=== PATIENT | male | born 1985 | race Two or more races ===

== ENCOUNTER 2018-09-01 11:35 | Emergency (ER) | payer MEDICAID ==
[~2018-09-01] VITALS: Ht 170.2 cm; Wt 80.0 kg
[2018-09-01] MEDS ORDERED: CLOZ25TA4 PO (11:41)
[2018-09-01] MEDS ORDERED: ATEN-42 PO (11:42)
[2018-09-01] MEDS ORDERED: LEVO25TA7 PO (11:42)
[2018-09-01] MEDS ORDERED: LORA1TAB PO (11:42)
[2018-09-01] MEDS ORDERED: ACETAMINOPHEN 325MG TABLET PO STA (12:14)
[2018-09-01] MEDS ORDERED: ONDANSETRON 4MG ODT PO STA (12:14)
[2018-09-01 13:05] LABS: BASOPHILS % 0.5 % (0.0-2.0); HEMATOCRIT. 42.4 % (42.0-52.0); HEMOGLOBIN. 14.3 g/dL (14.0-18.0); LYMPHOCYTES % 19.9 % (20.0-50.0); MEAN CORPUSCULAR HEMOGLOBIN 32.4 pg (28.0-32.0); MEAN CORPUSCULAR VOLUME 95.6 fL (80.0-94.0); MEAN PLATELET VOLUME 6.7 fl (7.4-10.4); MONOCYTES % 6.5 % (2.0-8.0); NEUTROPHILS % 73.1 % (40.0-76.0); PLATELET 197 x1000/uL (130-400); RED BLOOD CELL COUNT 4.43 mill/uL (4.7-6.1); RED CELL DISTRIBUTION WIDTH 13.5 % (11.6-14.6)
[2018-09-01 13:07] LABS: CHLORIDE 108 mEq/L (98-107)
[2018-09-01 13:39] VITALS: BP 131/70
== END 2018-09-01 13:39 | disposition home or self-care (01) ==
LOC: ER 11:35
DX: B34.9 Viral infection, unspecified (principal); I10 Essential (primary) hypertension; E05.90 Thyrotoxicosis, unspecified without thyrotoxic crisis or storm; R05 Cough; R11.0 Nausea; Z79.899 Other long term (current) drug therapy
CPT/HCPCS: 36415; 71045; 80053; 85025; 99284; Q0162

== ENCOUNTER 2019-08-06 13:15 | Emergency (ER) | payer MEDICAID ==
[~2019-08-06] VITALS: Ht 170.2 cm; Wt 86.0 kg
[~2019-08-06 13:15] MED LIST: ATEN-42 PO; CLOZ25TA4 PO; LEVO25TA7 PO; LORA1TAB PO
[2019-08-06] MEDS ORDERED: SODIUM CHLORIDE 0.9% 1,000 ML IV ONE (13:25)
[2019-08-06] MEDS ORDERED: DIPHENHYDRAMINE 50MG/ML VIAL IV ONE ×2 (13:30→14:30)
[2019-08-06 14:06] LABS: BASOPHILS % 0.3 % (0.0-2.0); HEMATOCRIT. 42.4 % (42.0-52.0); HEMOGLOBIN. 14.4 g/dL (14.0-18.0); LYMPHOCYTES % 20.8 % (20.0-50.0); MEAN CORPUSCULAR HEMOGLOBIN 31.9 pg (28.0-32.0); MEAN CORPUSCULAR VOLUME 93.8 fL (80.0-94.0); MEAN PLATELET VOLUME 6.7 fl (7.4-10.4); NEUTROPHILS % 73.9 % (40.0-76.0); PLATELET 193 x1000/uL (130-400); RED BLOOD CELL COUNT 4.51 mill/uL (4.7-6.1); RED CELL DISTRIBUTION WIDTH 13.7 % (11.6-14.6)
[2019-08-06 14:14] LABS: CHLORIDE 105 mEq/L (98-107)
[2019-08-06 14:20] LABS: ETHANOL BLOOD 52 mg/dL
[2019-08-06 14:34] LABS: CLARITY URINE CLEAR (CLEAR); COLOR URINE YELLOW (YELLOW); KETONES URINE NEGATIVE (NEGATIVE); LEUKOCYTE ESTERASE URINE NEGATIVE (NEGATIVE); NITRITE URINE NEGATIVE (NEGATIVE); OCCULT BLOOD URINE NEGATIVE (NEGATIVE); PH URINE 7.5 (4.5-8.0); PROTEIN URINE NEGATIVE (NEGATIVE); SPECIFIC GRAVITY URINE 1.005 (1.005-1.030); UROBILINOGEN URINE 0.2 E.U./dL (0.2-1.0)
[2019-08-06] MEDS ORDERED: LORAZEPAM 2MG/ML CPJ IV ONE (15:00)
[2019-08-06 15:08] LABS: *AMPHETAMINES SCREEN URINE NEGATIVE (NEGATIVE)
[2019-08-06 15:09] LABS: *BARBITURATES SCREEN URINE NEGATIVE (NEGATIVE); *BENZODIAZEPINES SCREEN URINE NEGATIVE (NEGATIVE); *COCAINE SCREEN URINE NEGATIVE (NEGATIVE); METHADONE URINE SCREEN NEGATIVE (NEGATIVE); OPIATES URINE SCREEN NEGATIVE (NEGATIVE); PHENCYCLIDINE URINE SCREEN NEGATIVE (NEGATIVE)
[2019-08-06 15:10] LABS: CANNABINOID URINE SCREEN NEGATIVE (NEGATIVE)
[2019-08-06 18:31] VITALS: BP 128/66
== END 2019-08-06 18:33 | disposition home or self-care (01) ==
LOC: ER 13:35
DX: G93.40 Encephalopathy, unspecified (principal); F10.129 Alcohol abuse with intoxication, unspecified; I10 Essential (primary) hypertension; Z79.899 Other long term (current) drug therapy; Z98.890 Other specified postprocedural states; Y90.2 Blood alcohol level of 40-59 mg/100 ml
CPT/HCPCS: 36415; 70450; 71045; 80053; 80305; 80307; 80320; 80329; 81003; 83690; 84484; 85025; 93005; 96374; 96375; 96376; 99285; J1200; J2060; J7030; G0480

== ENCOUNTER 2019-09-28 15:40 | Inpatient (IN) | payer MEDICAID ==
[~2019-09-28] VITALS: Ht 157.5 cm; Wt 78.5 kg
[2019-09-28] MEDS ORDERED: FOLIC ACID 1 MG, THIAMINE HCL 100 MG, MVI, ADULT NO.1 10 ML in DEXTROSE 5% WATER 1,000 ML IV ONE ×4 (16:00)
[2019-09-28] MEDS ORDERED: ONDANSETRON HCL 4MG/2ML INJ IV ONE (16:00)
[2019-09-28] MEDS ORDERED: SODIUM CHLORIDE 0.9% 1,000 ML IV ONE (16:04)
[2019-09-28 16:31] LABS: BASOPHILS % 0.2 % (0.0-2.0); HEMATOCRIT. 39.3 % (42.0-52.0); HEMOGLOBIN. 13.7 g/dL (14.0-18.0); LYMPHOCYTES % 37.9 % (20.0-50.0); MEAN CORPUSCULAR HEMOGLOBIN 32.9 pg (28.0-32.0); MEAN CORPUSCULAR VOLUME 94.1 fL (80.0-94.0); MEAN PLATELET VOLUME 6.7 fl (7.4-10.4); MONOCYTES % 7.8 % (2.0-8.0); NEUTROPHILS % 54.1 % (40.0-76.0); PLATELET 207 x1000/uL (130-400); RED BLOOD CELL COUNT 4.18 mill/uL (4.7-6.1); RED CELL DISTRIBUTION WIDTH 13.6 % (11.6-14.6)
[2019-09-28 16:41] LABS: CHLORIDE 105 mEq/L (98-107)
[2019-09-28 16:42] LABS: PROTHROMBIN TIME 10.7 sec (9.6-11.0)
[2019-09-28 16:46] LABS: ETHANOL BLOOD 205 mg/dL
[2019-09-28 16:51] LABS: CREATINE KINASE 123 IU/L (39-308)
[2019-09-28 16:55] LABS: CLARITY URINE CLEAR (CLEAR); COLOR URINE YELLOW (YELLOW); KETONES URINE NEGATIVE (NEGATIVE); LEUKOCYTE ESTERASE URINE NEGATIVE (NEGATIVE); NITRITE URINE NEGATIVE (NEGATIVE); OCCULT BLOOD URINE NEGATIVE (NEGATIVE); PROTEIN URINE NEGATIVE (NEGATIVE); SPECIFIC GRAVITY URINE 1.012 (1.005-1.030); UROBILINOGEN URINE 0.2 E.U./dL (0.2-1.0)
[2019-09-28 17:10] LABS: CANNABINOID URINE SCREEN NEGATIVE (NEGATIVE); PHENCYCLIDINE URINE SCREEN NEGATIVE (NEGATIVE)
[2019-09-28 17:11] LABS: *BARBITURATES SCREEN URINE NEGATIVE (NEGATIVE); *BENZODIAZEPINES SCREEN URINE NEGATIVE (NEGATIVE); *COCAINE SCREEN URINE NEGATIVE (NEGATIVE); METHADONE URINE SCREEN NEGATIVE (NEGATIVE); OPIATES URINE SCREEN NEGATIVE (NEGATIVE)
[2019-09-28 17:18] LABS: *AMPHETAMINES SCREEN URINE NEGATIVE (NEGATIVE)
[2019-09-28] MEDS ORDERED: LEVETIRACETAM 500MG PREMIX 100 ML IV ONE (18:00)
[2019-09-28] MEDS ORDERED: GUAIFENESIN 200MG/10ML SUGAR FREE UDC PO PRN (20:15)
[2019-09-28] MEDS ORDERED: ONDANSETRON HCL 4MG/2ML INJ IV PRN (20:15)
[2019-09-28] MEDS ORDERED: HYDROCODONE/ACETAMINOPHEN 10/325MG TABLET PO PRN (20:15)
[2019-09-28] MEDS ORDERED: HYDRALAZINE 20MG/ML VIAL IV PRN (20:15)
[2019-09-28] MEDS ORDERED: DIPHENHYDRAMINE 50MG/ML VIAL IV PRN (20:15)
[2019-09-28] MEDS ORDERED: MAGNESIUM/ALUMINUM HYDROXIDE/SIMETHICONE 30ML UDC PO PRN (20:15)
[2019-09-28] MEDS ORDERED: ACETAMINOPHEN 325MG TABLET PO PRN (20:15)
[2019-09-28] MEDS ORDERED: MORPHINE SULFATE 2 MG/ML CPJ (NOT FOR IM USE) IV PRN (20:15)
[2019-09-28] MEDS ORDERED: CLONIDINE 0.1MG TABLET PO PRN (20:15)
[2019-09-28] MEDS ORDERED: DOCUSATE SODIUM 100MG CAPSULE PO PRN (20:15)
[2019-09-28] MEDS ORDERED: IPRATROPIUM/ALBUTEROL 0.5-3(2.5)MG/3ML NEB HHN PRN (20:15)
[2019-09-28 21:20] VITALS: BP 119/56
[2019-09-28] MEDS: ENOXAPARIN 40MG/0.4ML SYR SUBCUT SCH (22:13)
[2019-09-28] MEDS: SODIUM CHLORIDE 0.9% INJ 3ML FLUSH IVF SCH (22:13)
[2019-09-28] MEDS: LORAZEPAM 2MG/ML CPJ IV PRN (22:14)
[2019-09-28] MEDS: DEXT 5%/0.45% NACL 1000ML 1,000 ML IV SCH (22:14)
[2019-09-28 23:31] LABS: CREATINE KINASE 124 IU/L (39-308)
[2019-09-28 23:32] LABS: CREATINE KINASE MB FRACTION 1.4 ng/mL (0.5-3.6)
[2019-09-29] VITALS: BP 105/67
[2019-09-29 04:00] VITALS: BP 110/64
[2019-09-29] MEDS: DEXT 5%/0.45% NACL 1000ML 1,000 ML IV SCH ×2 (05:52→16:43)
[2019-09-29] MEDS: SODIUM CHLORIDE 0.9% INJ 3ML FLUSH IVF SCH ×3 (05:52→20:29)
[2019-09-29 08:00] VITALS: BP 103/50
[2019-09-29] MEDS ORDERED: LEVETIRACETAM 500MG PREMIX 100 ML IV SCH (09:00)
[2019-09-29] MEDS: LORAZEPAM 2MG/ML CPJ IV PRN ×3 (09:49→23:45)
[2019-09-29] MEDS: LEVETIRACETAM 500MG PREMIX 100 ML IV SCH ×2 (11:17→20:25)
[2019-09-29 12:00] VITALS: BP 116/64
[2019-09-29 15:04] LABS: BASOPHILS % 0.3 % (0.0-2.0); HEMATOCRIT. 38.6 % (42.0-52.0); HEMOGLOBIN. 13.3 g/dL (14.0-18.0); LYMPHOCYTES % 39.2 % (20.0-50.0); MEAN CORPUSCULAR HEMOGLOBIN 32.7 pg (28.0-32.0); MEAN CORPUSCULAR VOLUME 94.8 fL (80.0-94.0); MEAN PLATELET VOLUME 6.7 fl (7.4-10.4); NEUTROPHILS % 52.5 % (40.0-76.0); PLATELET 188 x1000/uL (130-400); RED BLOOD CELL COUNT 4.07 mill/uL (4.7-6.1); RED CELL DISTRIBUTION WIDTH 13.9 % (11.6-14.6)
[2019-09-29 15:14] LABS: CHLORIDE 109 mEq/L (98-107)
[2019-09-29 15:24] LABS: CREATINE KINASE 157 IU/L (39-308)
[2019-09-29 15:26] LABS: CREATINE KINASE MB FRACTION 1.7 ng/mL (0.5-3.6)
[2019-09-29 16:00] VITALS: BP 118/69
[2019-09-29 20:00] VITALS: BP 119/68
[2019-09-29] MEDS: ENOXAPARIN 40MG/0.4ML SYR SUBCUT SCH (20:25)
[2019-09-30] VITALS (7 sets, daily range): BP systolic 103–140; BP diastolic 55–78
[2019-09-30] MEDS: DEXT 5%/0.45% NACL 1000ML 1,000 ML IV SCH ×3 (02:41→22:15)
[2019-09-30] MEDS: SODIUM CHLORIDE 0.9% INJ 3ML FLUSH IVF SCH ×3 (04:39→21:07)
[2019-09-30] MEDS: LEVETIRACETAM 500MG PREMIX 100 ML IV SCH ×2 (08:52→21:07)
[2019-09-30] MEDS: LORAZEPAM 2MG/ML CPJ IV PRN (18:47)
[2019-09-30] MEDS: ENOXAPARIN 40MG/0.4ML SYR SUBCUT SCH (21:06)
[2019-10-01] VITALS: BP 103/54
[2019-10-01 04:00] VITALS: BP 108/61
[2019-10-01] MEDS: SODIUM CHLORIDE 0.9% INJ 3ML FLUSH IVF SCH ×3 (06:00→21:15)
[2019-10-01] MEDS: DEXT 5%/0.45% NACL 1000ML 1,000 ML IV SCH ×2 (07:38→17:53)
[2019-10-01] MEDS: LEVETIRACETAM 500MG PREMIX 100 ML IV SCH ×2 (07:38→21:15)
[2019-10-01 08:00] VITALS: BP 107/65
[2019-10-01 12:00] VITALS: BP 133/64
[2019-10-01] MEDS: FOLIC ACID 1MG TABLET PO SCH (12:23)
[2019-10-01] MEDS: MULTIVITAMINS,THER W-MINERALS TABLET PO SCH (12:23)
[2019-10-01] MEDS: THIAMINE HCL 100MG TABLET PO SCH (12:23)
[2019-10-01] MEDS: CHLORDIAZEPOXIDE 25MG CAPSULE PO SCH ×2 (13:01→21:15)
[2019-10-01 16:00] VITALS: BP 128/76
[2019-10-01 20:00] VITALS: BP 113/74
[2019-10-01] MEDS: ENOXAPARIN 40MG/0.4ML SYR SUBCUT SCH (21:15)
[2019-10-01] MEDS: LORAZEPAM 2MG/ML CPJ IV PRN (21:29)
[2019-10-02] VITALS: BP 96/65
[2019-10-02] MEDS: DEXT 5%/0.45% NACL 1000ML 1,000 ML IV SCH ×2 (03:53→14:18)
[2019-10-02 04:00] VITALS: BP 103/63
[2019-10-02] MEDS: SODIUM CHLORIDE 0.9% INJ 3ML FLUSH IVF SCH ×3 (05:54→21:09)
[2019-10-02] MEDS: CHLORDIAZEPOXIDE 25MG CAPSULE PO SCH ×3 (06:21→21:09)
[2019-10-02 07:12] LABS: CHLORIDE 110 mEq/L (98-107)
[2019-10-02 07:28] LABS: BASOPHILS % 0.4 % (0.0-2.0); HEMOGLOBIN. 13.4 g/dL (14.0-18.0); LYMPHOCYTES % 45.2 % (20.0-50.0); MEAN CORPUSCULAR HEMOGLOBIN 32.8 pg (28.0-32.0); MEAN CORPUSCULAR VOLUME 95.1 fL (80.0-94.0); MONOCYTES % 8.6 % (2.0-8.0); NEUTROPHILS % 45.8 % (40.0-76.0); PLATELET 191 x1000/uL (130-400); RED CELL DISTRIBUTION WIDTH 13.9 % (11.6-14.6)
[2019-10-02 08:00] VITALS: BP 105/63
[2019-10-02] MEDS: MULTIVITAMINS,THER W-MINERALS TABLET PO SCH (08:57)
[2019-10-02] MEDS: LEVETIRACETAM 500MG PREMIX 100 ML IV SCH ×2 (08:57→21:09)
[2019-10-02] MEDS: THIAMINE HCL 100MG TABLET PO SCH (08:57)
[2019-10-02] MEDS: FOLIC ACID 1MG TABLET PO SCH (08:57)
[2019-10-02 12:00] VITALS: BP 112/68
[2019-10-02 16:00] VITALS: BP 105/64
[2019-10-02] MEDS: LORAZEPAM 2MG/ML CPJ IV PRN (19:46)
[2019-10-02 20:00] VITALS: BP 114/73
[2019-10-02] MEDS: ENOXAPARIN 40MG/0.4ML SYR SUBCUT SCH (21:09)
[2019-10-03] VITALS: BP 103/64
[2019-10-03] MEDS: LORAZEPAM 2MG/ML CPJ IV PRN ×3 (00:59→21:02)
[2019-10-03] MEDS: DEXT 5%/0.45% NACL 1000ML 1,000 ML IV SCH ×3 (03:41→22:37)
[2019-10-03 04:00] VITALS: BP 103/68
[2019-10-03] MEDS: CHLORDIAZEPOXIDE 25MG CAPSULE PO SCH ×3 (05:11→21:01)
[2019-10-03] MEDS: SODIUM CHLORIDE 0.9% INJ 3ML FLUSH IVF SCH ×3 (05:12→22:00)
[2019-10-03 06:10] LABS: CHLORIDE 110 mEq/L (98-107)
[2019-10-03 06:18] LABS: BASOPHILS % 0.5 % (0.0-2.0); HEMATOCRIT. 38.4 % (42.0-52.0); HEMOGLOBIN. 13.5 g/dL (14.0-18.0); LYMPHOCYTES % 42.9 % (20.0-50.0); MEAN CORPUSCULAR HEMOGLOBIN 33.2 pg (28.0-32.0); MEAN CORPUSCULAR VOLUME 94.6 fL (80.0-94.0); MEAN PLATELET VOLUME 7.1 fl (7.4-10.4); MONOCYTES % 6.4 % (2.0-8.0); NEUTROPHILS % 50.2 % (40.0-76.0); PLATELET 188 x1000/uL (130-400); RED BLOOD CELL COUNT 4.05 mill/uL (4.7-6.1); RED CELL DISTRIBUTION WIDTH 13.8 % (11.6-14.6)
[2019-10-03] MEDS: THIAMINE HCL 100MG TABLET PO SCH (09:57)
[2019-10-03] MEDS: LEVETIRACETAM 500MG PREMIX 100 ML IV SCH ×2 (09:57→21:01)
[2019-10-03] MEDS: FOLIC ACID 1MG TABLET PO SCH (09:57)
[2019-10-03] MEDS: MULTIVITAMINS,THER W-MINERALS TABLET PO SCH (09:57)
[2019-10-03 12:27] VITALS: BP 103/59
[2019-10-03 16:00] VITALS: BP 110/69
[2019-10-03 20:32] VITALS: BP 106/66
[2019-10-03] MEDS ORDERED: LORAZEPAM 2MG/ML CPJ IV PRN (20:45)
[2019-10-03] MEDS: ENOXAPARIN 40MG/0.4ML SYR SUBCUT SCH (21:01)
[2019-10-04 00:53] VITALS: BP 108/63
[2019-10-04 04:00] VITALS: BP 101/65
[2019-10-04] MEDS: SODIUM CHLORIDE 0.9% INJ 3ML FLUSH IVF SCH ×3 (05:16→21:10)
[2019-10-04] MEDS: CHLORDIAZEPOXIDE 25MG CAPSULE PO SCH ×3 (05:41→21:10)
[2019-10-04 08:00] VITALS: BP 107/67
[2019-10-04] MEDS: FOLIC ACID 1MG TABLET PO SCH (08:42)
[2019-10-04] MEDS: DEXT 5%/0.45% NACL 1000ML 1,000 ML IV SCH ×2 (08:42→16:59)
[2019-10-04] MEDS: LEVETIRACETAM 500MG PREMIX 100 ML IV SCH (08:42)
[2019-10-04] MEDS: THIAMINE HCL 100MG TABLET PO SCH (08:42)
[2019-10-04] MEDS: MULTIVITAMINS,THER W-MINERALS TABLET PO SCH (08:42)
[2019-10-04 12:00] VITALS: BP 103/64
[2019-10-04 20:00] VITALS: BP 111/64
[2019-10-04] MEDS: LEVETIRACETAM 500MG/5ML CUP PO SCH (20:36)
[2019-10-04] MEDS: LORAZEPAM 2MG/ML CPJ IV PRN (20:37)
[2019-10-04] MEDS: ENOXAPARIN 40MG/0.4ML SYR SUBCUT SCH (20:37)
[2019-10-05] VITALS: BP 106/66
[2019-10-05 04:00] VITALS: BP 103/63
[2019-10-05] MEDS: CHLORDIAZEPOXIDE 25MG CAPSULE PO SCH ×3 (05:51→21:23)
[2019-10-05] MEDS: SODIUM CHLORIDE 0.9% INJ 3ML FLUSH IVF SCH ×3 (05:51→21:26)
[2019-10-05 07:23] LABS: BASOPHILS % 0.4 % (0.0-2.0); HEMATOCRIT. 37.6 % (42.0-52.0); HEMOGLOBIN. 13.2 g/dL (14.0-18.0); LYMPHOCYTES % 31.6 % (20.0-50.0); MEAN CORPUSCULAR HEMOGLOBIN 33.2 pg (28.0-32.0); MEAN CORPUSCULAR VOLUME 94.4 fL (80.0-94.0); MEAN PLATELET VOLUME 7.2 fl (7.4-10.4); MONOCYTES % 9.9 % (2.0-8.0); NEUTROPHILS % 58.1 % (40.0-76.0); PLATELET 195 x1000/uL (130-400); RED BLOOD CELL COUNT 3.98 mill/uL (4.7-6.1); RED CELL DISTRIBUTION WIDTH 13.9 % (11.6-14.6)
[2019-10-05 07:59] LABS: CHLORIDE 107 mEq/L (98-107)
[2019-10-05 08:00] VITALS: BP 106/56
[2019-10-05] MEDS: THIAMINE HCL 100MG TABLET PO SCH (08:22)
[2019-10-05] MEDS: DEXT 5%/0.45% NACL 1000ML 1,000 ML IV SCH ×2 (08:22→13:11)
[2019-10-05] MEDS: FOLIC ACID 1MG TABLET PO SCH (08:22)
[2019-10-05] MEDS: MULTIVITAMINS,THER W-MINERALS TABLET PO SCH (08:22)
[2019-10-05] MEDS: LEVETIRACETAM 500MG/5ML CUP PO SCH ×2 (08:22→21:22)
[2019-10-05] MEDS: LORAZEPAM 2MG/ML CPJ IV PRN (15:38)
[2019-10-05 16:00] VITALS: BP 113/73
[2019-10-05 20:00] VITALS: BP 103/64
[2019-10-05] MEDS: ENOXAPARIN 40MG/0.4ML SYR SUBCUT SCH (21:25)
[2019-10-06] VITALS: BP 141/73
[2019-10-06 04:00] VITALS: BP 92/53
[2019-10-06] MEDS: SODIUM CHLORIDE 0.9% INJ 3ML FLUSH IVF SCH ×3 (05:52→21:12)
[2019-10-06] MEDS: CHLORDIAZEPOXIDE 25MG CAPSULE PO SCH ×2 (05:53→14:00)
[2019-10-06 08:00] VITALS: BP 99/63
[2019-10-06] MEDS: THIAMINE HCL 100MG TABLET PO SCH (08:59)
[2019-10-06] MEDS: FOLIC ACID 1MG TABLET PO SCH (08:59)
[2019-10-06] MEDS: LEVETIRACETAM 500MG/5ML CUP PO SCH ×2 (08:59→21:11)
[2019-10-06] MEDS: MULTIVITAMINS,THER W-MINERALS TABLET PO SCH (09:01)
[2019-10-06 12:00] VITALS: BP 110/59
[2019-10-06] MEDS: DEXT 5%/0.45% NACL 1000ML 1,000 ML IV SCH ×3 (14:03→23:32)
[2019-10-06 16:00] VITALS: BP 97/56
[2019-10-06 20:00] VITALS: BP 110/59
[2019-10-06] MEDS: ENOXAPARIN 40MG/0.4ML SYR SUBCUT SCH (21:12)
[2019-10-06] MEDS: LORAZEPAM 2MG/ML CPJ IV PRN (21:47)
[2019-10-07] VITALS: BP 115/61
[2019-10-07 04:00] VITALS: BP 94/48
[2019-10-07] MEDS: SODIUM CHLORIDE 0.9% INJ 3ML FLUSH IVF SCH ×2 (06:45→14:00)
[2019-10-07 08:00] VITALS: BP 107/69
[2019-10-07] MEDS: MULTIVITAMINS,THER W-MINERALS TABLET PO SCH (08:20)
[2019-10-07] MEDS: FOLIC ACID 1MG TABLET PO SCH (08:20)
[2019-10-07] MEDS: THIAMINE HCL 100MG TABLET PO SCH (08:20)
[2019-10-07] MEDS: LEVETIRACETAM 500MG/5ML CUP PO SCH (08:20)
[2019-10-07] MEDS: DEXT 5%/0.45% NACL 1000ML 1,000 ML IV SCH (10:12)
[2019-10-07 12:00] VITALS: BP 99/52
[2019-10-07 12:53] VITALS: BP 99/52
== END 2019-10-07 14:15 | disposition home or self-care (01) | DRG 775 ==
LOC: EDBD 15:40 → ER 15:40 → EDBEDREQTM 18:02 → EDBEDREQ 18:02 → ENRESERV 18:57 → MERGE 21:42 → 5WST 21:42
PROVIDERS: ADMIT Internal Medicine; ATTEND Internal Medicine
PROC: 4A00X4Z Measurement of Central Nervous Electrical Activity, External Approach (ICD-10-PCS; principal; 2019-10-04)
DX: F10.129 Alcohol abuse with intoxication, unspecified (principal); G92 Toxic encephalopathy; R56.9 Unspecified convulsions; F20.9 Schizophrenia, unspecified; F31.9 Bipolar disorder, unspecified; Z79.899 Other long term (current) drug therapy; R65.10 Systemic inflammatory response syndrome (SIRS) of non-infectious origin without acute organ dysfunction; Y90.7 Blood alcohol level of 200-239 mg/100 ml; F17.210 Nicotine dependence, cigarettes, uncomplicated
CPT/HCPCS: 36415; 71045; 80048; 80053; 80305; 80307; 80320; 80329; 81003; 82550; 82553; 83721; 83880; 84484; 85025; 93005; 96365; 97162; 99285; J1650; J1953; J2060; J3411; J3490; J7030; J7070; G0480